=== PATIENT | male | born 1985 | race African-American/Black ===

== ENCOUNTER 2016-05-08 09:57 | Emergency (ER) | payer OTHER ==
[2016-05-08] MEDS ORDERED: BOOSTRIX VACCINE IM ONE (10:17)
[2016-05-08] MEDS ORDERED: TYLENOL PO ONE (10:20)
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
[2016-05-08 13:51] VITALS: BP 110/76
== END 2016-05-08 11:10 | disposition home or self-care (01) ==
LOC: P.ED 09:57
DX: S00.01XA Abrasion of scalp, initial encounter (principal); R51 Headache; Z23 Encounter for immunization; V69.9XXA Occupant (driver) (passenger) of heavy transport vehicle injured in unspecified traffic accident, initial encounter
CPT/HCPCS: 90471; 90715

== ENCOUNTER 2016-05-08 19:46 | Emergency (ER) | payer OTHER ==
[2016-05-08 19:58] VITALS: BP 169/88
[2016-05-08] MEDS ORDERED: TYLENOL WITH CODEINE #3 PO ONE (20:15)
[2016-05-08] MEDS ORDERED: FLEXERIL PO ONE (20:15)
[2016-05-08] MEDS ORDERED: MOTRIN PO ONE (20:15)
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
--- NOTE | 2016-05-09 06:13 | Diag Imaging Result Document ---
PROCEDURE NAME: HEAD W/O CONTRAST - 05/08/2016 CT HEAD WITHOUT CONTRAST: COMPARISON: None available. FINDINGS: There is no discrete intracranial mass, mass effect, or intracranial hemorrhage. There is no evidence of hydrocephalus. There is no evidence of acute infarct given the limited sensitivity of CT versus MRI. The surrounding soft tissues and bony structures are essentially unremarkable. IMPRESSION: No evidence of acute intracranial pathology.
== END 2016-05-08 20:54 | disposition home or self-care (01) ==
LOC: P.ED 19:46
DX: S00.03XA Contusion of scalp, initial encounter (principal); R51 Headache; M79.605 Pain in left leg; M54.9 Dorsalgia, unspecified; M54.2 Cervicalgia; R47.81 Slurred speech; S70.12XA Contusion of left thigh, initial encounter; V89.2XXA Person injured in unspecified motor-vehicle accident, traffic, initial encounter
CPT/HCPCS: 70450